=== PATIENT | female | born 1965 | race Caucasian/White ===

== ENCOUNTER 2023-11-17 18:01 | Outpatient (RCR) | payer OTHER, SELFPAY | END 2023-11-17 23:59 | disposition home or self-care (01) | LOC: RPT 18:01 | PROVIDERS: ATTENDING PHYSICIAN Orthopaedic Surgery; FAMILY PHYSICIAN Family Medicine | DX: M25.562 Pain in left knee (principal); Z73.6 Limitation of activities due to disability; M62.81 Muscle weakness (generalized); M17.0 Bilateral primary osteoarthritis of knee; R26.89 Other abnormalities of gait and mobility | CPT/HCPCS: 97110; 97112; 97162 ==

== ENCOUNTER 2023-11-28 09:05 | Outpatient (RCR) | payer OTHER, SELFPAY | END 2023-11-28 10:03 | disposition home or self-care (01) | LOC: RPT 09:05 | PROVIDERS: ATTENDING PHYSICIAN Orthopaedic Surgery; FAMILY PHYSICIAN Family Medicine | DX: M25.562 Pain in left knee (principal); Z73.6 Limitation of activities due to disability; M62.81 Muscle weakness (generalized); M17.0 Bilateral primary osteoarthritis of knee; R26.89 Other abnormalities of gait and mobility | CPT/HCPCS: 97110; 97112 ==

== ENCOUNTER → 2024-04-01 11:53 | Outpatient (REF) | payer OTHER, SELFPAY | LOC: WDC 11:53 | PROVIDERS: ATTENDING PHYSICIAN Family Medicine | DX: Z12.31 Encounter for screening mammogram for malignant neoplasm of breast (principal) | CPT/HCPCS: 77063; 77067 ==

== ENCOUNTER → 2024-04-02 13:07 | Outpatient (REF) | payer SELFPAY | LOC: HWRAD 13:07 | PROVIDERS: ATTENDING PHYSICIAN Family Medicine | DX: E78.00 Pure hypercholesterolemia, unspecified (principal) | CPT/HCPCS: 75571 ==

== ENCOUNTER → 2024-05-20 12:42 | Outpatient (REF) | payer OTHER, SELFPAY | LOC: RAD 12:42 | PROVIDERS: ATTENDING PHYSICIAN Family Medicine | DX: Z13.820 Encounter for screening for osteoporosis (principal) | CPT/HCPCS: 77080 ==

== ENCOUNTER 2024-08-12 06:28 | Outpatient (RCR) | payer OTHER, SELFPAY | END 2024-08-12 23:59 | disposition home or self-care (01) | LOC: RPT 06:28 | PROVIDERS: ATTENDING PHYSICIAN Internal Medicine Gastroenterology; FAMILY PHYSICIAN Family Medicine | DX: M62.89 Other specified disorders of muscle (principal); Z73.6 Limitation of activities due to disability; R10.2 Pelvic and perineal pain; M62.838 Other muscle spasm; R27.8 Other lack of coordination | CPT/HCPCS: 97163; 97530 ==

== ENCOUNTER 2024-09-06 17:26 | Outpatient (RCR) | payer OTHER, SELFPAY | END 2024-09-06 23:59 | disposition home or self-care (01) | LOC: RPT 17:26 | PROVIDERS: ATTENDING PHYSICIAN Internal Medicine Gastroenterology; FAMILY PHYSICIAN Family Medicine | DX: M62.89 Other specified disorders of muscle (principal); Z73.6 Limitation of activities due to disability; R10.2 Pelvic and perineal pain; M62.838 Other muscle spasm; R27.8 Other lack of coordination; M81.0 Age-related osteoporosis without current pathological fracture | CPT/HCPCS: 97140; 97530 ==

== ENCOUNTER 2024-10-05 09:55 | Outpatient (RCR) | payer OTHER, SELFPAY | END 2024-10-05 23:59 | disposition home or self-care (01) | LOC: RPT 09:55 | PROVIDERS: ATTENDING PHYSICIAN Internal Medicine Gastroenterology; FAMILY PHYSICIAN Family Medicine | DX: M62.89 Other specified disorders of muscle (principal); Z73.6 Limitation of activities due to disability; R10.2 Pelvic and perineal pain; M62.838 Other muscle spasm; R27.8 Other lack of coordination; M81.0 Age-related osteoporosis without current pathological fracture | CPT/HCPCS: 97014; 97112; 97140; 97530 ==

== ENCOUNTER 2024-11-17 16:06 | Outpatient (RCR) | payer OTHER, SELFPAY | END 2024-11-18 08:16 | disposition home or self-care (01) | LOC: RPT 16:06 | PROVIDERS: ATTENDING PHYSICIAN Internal Medicine Gastroenterology; FAMILY PHYSICIAN Family Medicine | DX: M62.89 Other specified disorders of muscle (principal); Z73.6 Limitation of activities due to disability; R10.2 Pelvic and perineal pain; M62.838 Other muscle spasm; R27.8 Other lack of coordination; N39.41 Urge incontinence; M81.0 Age-related osteoporosis without current pathological fracture; M62.81 Muscle weakness (generalized) | CPT/HCPCS: 97014; 97112; 97140; 97530 ==

== ENCOUNTER → 2025-04-04 12:04 | Outpatient (REF) | payer OTHER, SELFPAY | LOC: WDC 12:04 | PROVIDERS: ATTENDING PHYSICIAN Family Medicine | DX: Z12.31 Encounter for screening mammogram for malignant neoplasm of breast (principal) | CPT/HCPCS: 77063; 77067 ==